=== PATIENT | female | born 1965 | race Hispanic/Latino ===

== ENCOUNTER 2024-02-02 13:36 | Emergency (ER) | payer MEDICAID, SELFPAY ==
[~2024-02-02] VITALS: Ht 157.5 cm; Wt 87.5 kg
[2024-02-02] MEDS ORDERED: AMOX875T2 PO (15:24)
[2024-02-02 15:39] VITALS: BP 161/86; TEMP 97.5; O2SAT 97
== END 2024-02-02 15:41 | disposition home or self-care (01) ==
LOC: M ED 13:36
DX: K03.81 Cracked tooth (principal); Z79.2 Long term (current) use of antibiotics